=== PATIENT | female | born 1975 | race Caucasian/White ===

== ENCOUNTER → 2016-03-20 | Outpatient (CLI) | payer BC | LOC: LAB 12:14 | PROVIDERS: ATTEND Internal Medicine Gastroenterology | DX: D64.9 Anemia, unspecified (principal) | CPT/HCPCS: 36415; 82607; 82728; 82746; 83540; 83550; 85045 ==

== ENCOUNTER 2016-04-13 14:44 | Outpatient (RCR) | payer BC ==
[2016-04-13] MEDS ORDERED: IRON SUCROSE 200 MG in NORMAL SALINE 150 ML IV ONE (14:50)
--- NOTE | 2016-04-13 14:50 | NUR ---
To room 347 ambulatory - "I want to lie down" - skin pale warm dry - reports HX of Crohns and RA - "can't take oral iron"
[2016-04-13 15:05] VITALS: BP 129/70
--- NOTE | 2016-04-13 15:15 | NUR ---
IV start L wrist c 22G c SL applied X1 attempt c aseptic technique
[2016-04-13] MEDS: SODIUM CHLORIDE FLUSH 10 ML SYR IV SCH ×2 (15:19→16:28)
--- NOTE | 2016-04-13 15:30 | NUR ---
IV Venofer started per pump to infuse @ 160 mL/hr - "I think I will sleep"
--- NOTE | 2016-04-13 16:35 | NUR ---
IV venofer infused - SL flushed c 10 mL NS - coban wrap applied - will return on 3-4 for #2 dose of iron
--- NOTE | 2016-04-13 16:40 | NUR ---
Ambulated to ED entrance doors - dismissed to home - driving self
[2016-04-13 16:57] VITALS: BP 109/69
== END 2016-04-13 16:40 | disposition home or self-care (01) ==
LOC: ICU 14:48 → EUOP 16:40
PROVIDERS: ATTEND Internal Medicine Gastroenterology
DX: D50.9 Iron deficiency anemia, unspecified (principal)
CPT/HCPCS: 96365; J1756; J7050

== ENCOUNTER 2016-04-15 09:52 | Outpatient (RCR) | payer BC ==
[~2016-04-15] VITALS: Ht 165.1 cm; Wt 57.6 kg
[2016-04-15] MEDS ORDERED: IRON SUCROSE 200 MG in NORMAL SALINE 150 ML IV ONE (10:00)
[2016-04-15] MEDS ORDERED: NS FLUSH 3 ML PRN IV (10:00)
[2016-04-16] MEDS ORDERED: IRON SUCROSE 200 MG in NORMAL SALINE 150 ML IV ONE (09:30)
[2016-04-16] MEDS: NS FLUSH 10 ML PRN IV (09:44)
[2016-04-18] MEDS ORDERED: IRON SUCROSE 200 MG in NORMAL SALINE 150 ML IV ONE (13:15)
[2016-04-18] MEDS: NS FLUSH 10 ML PRN IV ×2 (13:21→15:09)
--- NOTE | 2016-04-18 14:47 | NUR ---
IV infusion complete. @@ joyce IV to right outer hand was left in due to patient having another infusion scheduled on 04/20/16.
[2016-04-20] MEDS ORDERED: IRON SUCROSE 200 MG in NORMAL SALINE 150 ML IV ONE (11:05)
[2016-04-20 12:05] VITALS: BP 106/62
--- NOTE | 2016-04-20 12:05 | NUR ---
Admit ambulatory to room 347
[2016-04-20] MEDS: NS FLUSH 10 ML PRN IV (12:12)
--- NOTE | 2016-04-20 12:15 | NUR ---
SL [facility] flushed c NS - no pain, swelling c flush - IV iron sucrose to infuse @ 160 mL/hr started @ 1217
--- NOTE | 2016-04-20 12:20 | NUR ---
Reports "terrible pain" to IV site [facility] -IV iron infusion stopped
--- NOTE | 2016-04-20 12:28 | NUR ---
IV restarted [facility] c 22G X1 attempt c aseptic tech - IV iron sucrose to infuse @ 160 mL/hr
--- NOTE | 2016-04-20 12:40 | NUR ---
IV DC'd from [facility] - pressure held until bleeding stopped - drsg applied
--- NOTE | 2016-04-20 13:32 | NUR ---
Asleep - IV no swelling - infusing per pump
[2016-04-20 13:35] VITALS: BP 101/64
--- NOTE | 2016-04-20 13:38 | NUR ---
Iron sucrose infused - NS flush
--- NOTE | 2016-04-20 13:40 | NUR ---
IV DC'd from [facility] - pressure held until bleeding stopped - drsg applied
--- NOTE | 2016-04-20 13:45 | NUR ---
Dismiss - ambulatory - "I have lab work @ end of the month to find out if I need more"
== END 2016-07-12 18:33 | disposition home or self-care (01) ==
LOC: EUOP 04-16 08:59 → ICU 04-20 12:03 → EUOP 04-20 12:03
PROVIDERS: ATTEND Internal Medicine Gastroenterology
DX: D50.9 Iron deficiency anemia, unspecified (principal)
CPT/HCPCS: 96365; J1756; J7050; 36000

== ENCOUNTER → 2016-07-03 | Outpatient (CLI) | payer BC ==
[2016-07-03 13:07] LABS: MEAN CORPUSCULAR HEMOGLOBIN 28.6 PG (26.0-34.0); MEAN CORPUSCULAR HGB CONC 33.4 g/dL (31.0-37.0); MEAN CORPUSCULAR VOLUME 86 FL (80-100); MEAN PLATELET VOLUME 8.4 FL (6.0-9.5); PLATELET COUNT 367 10^3uL (150-450); WHITE BLOOD COUNT 8.13 10^3uL (4.0-11.0)
[2016-07-03 13:19] LABS: ALBUMIN 4.5 g/dL (3.4-5.0); ALKALINE PHOSPHATASE 81 U/L (38-126); AMYLASE* 101 U/L (25-115); ANION GAP 12.3 MEQ/L (3-15); BUN/CREATININE RATIO 13 (10-20); CALCULATED IONIZED CALCIUM 3.8 mg/dL (3.8-4.6); LIPASE* 197 U/L (23-300); TOTAL PROTEIN 7.9 g/dL (6.4-8.5)
[2016-07-03 13:20] LABS: BAND NEUTROPHILS % 0 % (0-6); EOSINOPHILS % 2 % (0-4); LYMPHOCYTES # 2.6 #; MONOCYTES # 0.4 #; MONOCYTES % 5 % (3-11); SEGMENTED NEUTROPHILS % 61 % (51-67); TOTAL CELLS COUNTED 100
[2016-07-03 13:24] LABS: RBC MORPH NORMAL (NORMAL)
--- NOTE | 2016-07-03 14:37 | Diagnostic Imaging Report ---
PROCEDURE: CT of the abdomen with and without contrast and CT of the pelvis with contrast. TECHNIQUE: Precontrast acquisitions were acquired through the abdomen. Multiple contiguous axial images were obtained through the abdomen and pelvis after administration of intravenous contrast. INDICATION: Right abdominal pain. Weakness. Nausea COMPARISON: CT of 03/31/2013, 10/28/2010. FINDINGS: The liver size is top normal with no focal lesion. The bile ducts are normal. The portal and hepatic veins are negative. The gallbladder is small and unremarkable. The spleen and adrenals are negative. The pancreas is negative. No renal lesion is identified. The aorta is negative. No adenopathy is seen in the gastrohepatic or gastrosplenic ligaments. The periportal, mesenteric, and retroperitoneal lymph nodes are within normal limits. The uterus is retroverted. No adnexal masses are identified. The terminal ileum is normal. On the 10/28/2010 exam, the terminal ileum showed some acute inflammatory changes. One borderline dilated fluid-filled loop of small bowel is visible in the right pelvis. There is a tubular structure in the right lower quadrant that extends from the medial aspect of the cecum medially with a diameter of 9 mm. It is fairly superficially located and consistent with the appendix. There is no periappendiceal fat stranding around it. No free fluid or free air is identified. 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 There is bone cement in that region posteriorly. It has not significantly changed other than that. IMPRESSION: The appendix has increased in diameter; however, there is no periappendiceal edema. This could be a normal variant rather than early acute appendicitis. The report was called to Dr. Rao Laureano by Dr. Higgins at the time of dictation. Dictated by: Dictated on workstation # [id number]
== END ==
LOC: LAB 12:46
PROVIDERS: ATTEND Family Medicine
DX: R10.0 Acute abdomen (principal)
CPT/HCPCS: 36415; 74178; 80053; 82150; 83690; 85007; 85027; 86140; Q9967